=== PATIENT | male | born 1950 | race Caucasian/White ===

== ENCOUNTER → 2017-04-18 | Outpatient (CLI) | payer MEDICARE, OTHER | END | disposition home or self-care (01) | LOC: GMAM 10:21 | PROVIDERS: ATTEND Family Medicine | DX: Z12.5 Encounter for screening for malignant neoplasm of prostate (principal) ==

== ENCOUNTER → 2017-04-18 | Outpatient (CLI) | payer MEDICARE, OTHER | END | disposition home or self-care (01) | LOC: GMAM 14:45 | PROVIDERS: ATTEND Family Medicine | DX: R30.0 Dysuria (principal) ==

== ENCOUNTER → 2017-05-19 | Outpatient (CLI) | payer MEDICARE, OTHER ==
--- NOTE | 2017-05-19 17:11 | MRI ---
EXAM DESCRIPTION: Brain w/oContrast CLINICAL HISTORY: NEAR SYNCOPE COMPARISON: None TECHNIQUE: Multiplanar multisequence imaging of the brain including the intravenous administration of contrast. FINDINGS: A few small scattered foci of increased T2 signal intensity in the deep white matter bilaterally do not exert significant mass effect on surrounding structures and may be sequela of prior insult, most likely on the basis of small vessel disease. There is no evidence of acute mass, mass effect, midline shift or hemorrhage. No focal abnormal extra-axial fluid collection is seen. The ventricles, basal cisterns and extra-axial fluid spaces are normal in size and configuration. Brain parenchymal signal is otherwise normal. IMPRESSION: No acute abnormalities. Electronically signed by: Neptali Holbrook 05/19/2017 5:10 PM [employer]
== END | disposition home or self-care (01) ==
LOC: MRI 09:05
PROVIDERS: ATTEND Family Medicine
DX: R55 Syncope and collapse (principal)

== ENCOUNTER 2017-08-22 08:52 | Day surgery (SDC) | payer MEDICARE, OTHER ==
[~2017-08-22 08:52] MED LIST: LACTATED RINGERS 1,000 ML ONE
--- NOTE | 2017-08-22 09:21 | OP ---
DATE OF PROCEDURE: 08/22/17 PREOPERATIVE DIAGNOSIS: 1. History of colon cancer. POSTOPERATIVE DIAGNOSIS: 1. History of colon cancer. Colonoscopy completed to the cecum today with adequate visualization. 2. Polyp at the distal transverse colon, 4 mm, biopsied and removed with straight forceps biopsy. 3. Polyp at the proximal descending colon, 4 mm, multiple biopsies and removal by straight forceps biopsy. 4. Rectal polyp visualized on retroflexion, biopsied with straight forceps biopsy and believed to be removed. PROCEDURE: 1. Colonoscopy. SURGEON: Jose Rodriguez MD ANESTHESIA: Per Obdulio Cunningham CRNA. COMPLICATIONS: None apparent. SPECIMENS: Three polyps sent for Pathology. TECHNIQUE: The patient was brought to the GI lab and laid in the left lateral decubitus position. Digital rectal exam was performed. Prostate was felt to be normal. Rectal exam felt to be normal with no masses palpated. The colonoscope was inserted into the rectum and slowly through to the cecum. The cecum was well visualized. There were no polyps or masses in the cecum. The colonoscope was then gradually withdrawn through the ascending colon with no abnormalities noted, back into the transverse colon. In the distal aspect of the transverse colon, a small polyp was noted. This was biopsied with the straight forceps biopsy. It was a 4 mm polyp. Multiple biopsies were taken. Good hemostasis was achieved and adequate destruction was achieved. The scope was withdrawn further into the descending colon. In the proximal descending colon, another polyp was noted, again, 4 to 5 mm in size. This polyp was removed with the straight forceps biopsy. Multiple bites were taken and adequate destruction was achieved. Good hemostasis was noted. The scope was withdrawn back through the rest of the descending colon, into the sigmoid colon. This portion was somewhat difficult to examine due to a large amount of liquidy material that continued to refill the area despite suction and difficulty maintaining air in this portion of the colon as well, but I do feel like we got a fairly good look. We withdrew through the sigmoid colon and into the rectum. In the rectum, the scope was retroflexed. Upon retroflexion, another 4 mm polyp was noted in the rectum. This was biopsied with the straight forceps biopsy. A good bite was taken. Subsequent visualization of this polyp was very difficult. There was some bleeding in this region as well as maintaining the position of the scope was difficult, but we do feel like we got an adequate bite and destruction of that polyp. This will need to be reexamined in a year. The scope was straightened and gradually withdrawn. The patient tolerated the procedure well. There were no obvious complications. DISPOSITION: The patient will be discharged home when he is cleared from anesthesia standpoint. He needs another colonoscopy in one year. #[id number] [facility]
[2017-08-22] MEDS ORDERED: PROPOFOL 200 MG/20 ML VIAL IV ONE (10:00)
[2017-08-22] MEDS ORDERED: LIDOCAINE 1% 10 ML VIAL INJ ONE (10:00)
[2017-08-22 13:33] VITALS: BP 119/76; TEMP 98.4; O2SAT 95
== END 2017-08-22 09:10 | disposition home or self-care (01) ==
LOC: AMB 08:52
PROVIDERS: ATTEND Family Medicine
DX: Z12.11 Encounter for screening for malignant neoplasm of colon (principal); D12.7 Benign neoplasm of rectosigmoid junction; D12.4 Benign neoplasm of descending colon; D12.3 Benign neoplasm of transverse colon; E11.9 Type 2 diabetes mellitus without complications; E78.2 Mixed hyperlipidemia; K21.9 Gastro-esophageal reflux disease without esophagitis; Z87.891 Personal history of nicotine dependence; Z85.038 Personal history of other malignant neoplasm of large intestine; Z86.010 Personal history of colon polyps; Z88.8 Allergy status to other drugs, medicaments and biological substances; Z79.84 Long term (current) use of oral hypoglycemic drugs; Z79.82 Long term (current) use of aspirin
CPT/HCPCS: 00812; 36416; 45380; 82948; 88305; J3490; J7120

== ENCOUNTER → 2018-01-06 | Outpatient (CLI) | payer MEDICARE, OTHER ==
--- NOTE | 2018-01-06 16:41 | CT ---
EXAM DESCRIPTION: Abdomen/Pelvis w/wo Contrast: Computed Tomography. CLINICAL HISTORY: HEMATURIA. Borderline diabetes. Colon cancer with reconstruction 10 years ago. History of renal stones. Lower abdominal pain 2 days. COMPARISON: CT scan of abdomen and pelvis without and with IV contrast 09/17/2014 TECHNIQUE: Spiral-axial scans at 5.0 mm intervals through the abdomen and pelvis before and after standard dose nonionic IV contrast. No oral contrast. Coronal and sagittal 2.0 mm reconstructions, post contrast. No Delayed helical-axial scans . No adverse reactions. Total Exam DLP 1569.28 mGy - cm. This exam was performed according to our departmental CT dose-optimization program which includes automated exposure control, adjustment of the mA and/or kV according to patient size and/or use of iterative reconstruction technique; to reduce radiation dose to as low as reasonably achievable (ALARA). FINDINGS: Kidneys and Ureters: No radiodense stone in either kidney or ureters. No hydronephrosis or perinephric edema bilaterally. No ureteral edema bilaterally. Normal contrast enhancement. Subcentimeter cyst in the posterior mid left kidney. Stable since the prior study. No radiodense stones in the urinary bladder. Lung bases and pleura: Minimal thickening of the fissures minimal by basilar atelectasis. No pleural effusion. Stable since the prior study.. Liver, Stomach, Spleen, Adrenal Glands: Long axis of the right lobe of the liver is 18.2 cm. No focal lesions. Stomach and other solid organs are unremarkable. Pancreas, Gallbladder, Ducts: Gallbladder is visualized. Ducts are negative. Fatty infiltration of the pancreas. Mesentery: No stranding or fascial thickening. No free air or free fluid. Aorta: Minimal atherosclerotic calcification also involving some of the major branch vessels like the left renal artery. Small Bowel: Negative. Terminal Ileum/Cecum: Unremarkable. Normal caliber of the appendix. Normal density of the surrounding fat. Colon: Diffuse fecal matter involving most of the colon. Anastomosis in the upper left pelvis or lower left quadrant of the abdomen. No abnormal thickening, obstruction, pericolonic mass, or abnormality of the mesentery. Pelvic Organs: Prostate gland abutting the urinary bladder and the seminal vesicles. 5.4 x 3.5 cm transverse dimensions. Minimal calcification. No fluid in the anterior peritoneal reflection.. Spine and Bony Pelvis: Spondylosis L3-4 and in the included thoracic spine. Minimal arthrosis in the left SI joint and bilateral acetabula lateral spurs. Abdominal Wall/Back Soft Tissues: Negative. IMPRESSION: 1. Prior surgical anastomosis of the descending colon and sigmoid junction. No complications. No inflammatory changes in the fat and no mass or obstruction. 2. Bilateral kidneys ureters and urinary bladder unremarkable except for stable cyst in the left kidney. Enlarged prostate gland is impressing on the base of the urinary bladder. 3. Stable hepatomegaly. Electronically signed by: Neptali Guzmán MD 01/06/2018 4:40 PM CDT
== END ==
LOC: CT 11:56
PROVIDERS: ATTEND Family Medicine
DX: R31.9 Hematuria, unspecified (principal); N28.1 Cyst of kidney, acquired; N40.0 Benign prostatic hyperplasia without lower urinary tract symptoms; R16.0 Hepatomegaly, not elsewhere classified; Z98.0 Intestinal bypass and anastomosis status

== ENCOUNTER 2018-03-10 15:59 | Emergency (ER) | payer MEDICARE, OTHER ==
[2018-03-10 16:13] VITALS: TEMP 96.4; O2SAT 97
--- NOTE | 2018-03-10 16:20 | ED.PDOC ---
History of Present Illness - General Chief Complaint: Problem Stated Complaint: blood in Felix Time Seen by Provider: 03/10/18 16:17 Source: patient, RN notes reviewed Exam Limitations: no limitations Additional Information: 67 YEAR OLD WHITE MALE PRESENTS WITH BLOOD IN THE URINE HE HAD UROLOGICAL PROCEDURE DONE FOR BLADDER CANCER HE HAS A INDWELLING FELIX ( [address] WAY ) IT WAS DONE 2 DAYS AGO HIS URINE WAS GETTING CLEAR BUT IT HAS REDDISH AGAIN NO BLOOD CLOTS NO FEVER NO PAIN HE IS NOT ON ANY ANTICOAGULANTS - History of Present Illness Timing/Duration: yesterday Quality: moderate Radiation: none Activites at Onset: none Improving Factors: nothing Worsening Factors: nothing Allergies/Adverse Reactions: Allergies NO KNOWN ALLERGY Allergy (Unverified 09/11/14 10:40) Home Medications: Ambulatory Orders Ciprofloxacin [Cipro] 500 mg PO BID 03/10/18 Oxybutynin Chloride 5 mg PO TID 03/10/18 Victoza SC DAILY 03/10/18 Review of Systems - Review of Systems Constitutional: States: no symptoms reported EENTM: States: no symptoms reported Respiratory: States: no symptoms reported Cardiology: States: no symptoms reported Gastrointestinal/Abdominal: States: no symptoms reported Genitourinary: States: no symptoms reported Musculoskeletal: States: no symptoms reported Skin: States: no symptoms reported Neurological: States: no symptoms reported Endocrine: States: no symptoms reported Hematologic/Lymphatic: States: no symptoms reported Past Medical History (General) - Patient Medical History Hx Stroke: No Hx Congestive Heart Failure: No Hx Diabetes: Yes Hx Renal Disease: Yes Hx Cancer: Yes - Colon Hx MRSA: No - Vaccination History Hx Influenza Vaccination: No Hx Pneumococcal Vaccination: Yes - Social History Hx Tobacco Use: Yes Family Medical History - Family History Father Family History: Unknown Living Status: Unknown Physical Exam - Physical Exam General Appearance: Alert, Comfortable Eyes, Ears, Nose, Throat Exam: PERRL/EOMI, normal ENT inspection, TMs normal Neck: non-tender, full range of motion, supple, normal inspection Cardiovascular/Respiratory: regular rate, rhythm, no M/R/G, normal peripheral pulses, no JVD Gastrointestinal/Abdominal: normal bowel sounds, non tender, soft, no organomegaly Male Genital Exam: normal genitalia, no hernia, bleeding Back Exam: normal inspection Progress - Results/Orders Results/Orders: THE BLADDER WAS IRRIGATED AND THE URINE BECAME CLEAR AFTER 3 LITRES PT WAS DISCHARGED HOME TO BE FOLLOWED BY HIS UROLOGIST DR STEINBERG TO RETURN IF SYMPTOMS RECUR Departure - Departure Clinical Impression: Hematuria Time of Disposition: 18:25 Disposition: Discharge to Home or Self Care Departure Forms: ED Discharge - Pt. Copy, Patient Portal Self Enrollment Diet: resume usual diet Referrals: Jose Rodriguez MD [Primary Care Provider] - 1-2 Weeks Home Medications: Ambulatory Orders Ciprofloxacin [Cipro] 500 mg PO BID 03/10/18 Oxybutynin Chloride 5 mg PO TID 03/10/18 Victoza SC DAILY 03/10/18
[2018-03-10 18:21] VITALS: BP 133/85
== END 2018-03-10 18:33 | disposition home or self-care (01) ==
LOC: ER 15:59
DX: R31.0 Gross hematuria (principal); E11.9 Type 2 diabetes mellitus without complications; Z46.6 Encounter for fitting and adjustment of urinary device; Z85.51 Personal history of malignant neoplasm of bladder; Z85.038 Personal history of other malignant neoplasm of large intestine; Z87.891 Personal history of nicotine dependence

== ENCOUNTER → 2019-07-18 | Outpatient (CLI) | payer MEDICARE, OTHER | LOC: GMAM 11:45 | PROVIDERS: ATTEND Family Medicine | DX: Z12.5 Encounter for screening for malignant neoplasm of prostate (principal); R53.82 Chronic fatigue, unspecified; K92.1 Melena; E78.2 Mixed hyperlipidemia; E11.9 Type 2 diabetes mellitus without complications | CPT/HCPCS: 84439; 84443; 85610; 85730; G0103 ==

== ENCOUNTER 2019-11-16 05:29 | Day surgery (SDC) | payer MEDICARE, OTHER ==
[2019-11-16] MEDS ORDERED: LACTATED RINGERS 1,000 ML ONE (06:57)
[2019-11-16] MEDS ORDERED: LIDOCAINE 1% 10 ML VIAL INJ ONE (07:00)
[2019-11-16] MEDS ORDERED: PROPOFOL 200 MG/20 ML VIAL IV ONE (07:00)
--- NOTE | 2019-11-16 13:26 | OP ---
DATE OF PROCEDURE: 11/16/19 PREOPERATIVE DIAGNOSIS: 1. History of colon cancer. POSTOPERATIVE DIAGNOSIS: 1. History of colon cancer. PROCEDURE: 1. Colonoscopy. SURGEON: Leoncio James MD FINDINGS: Normal colon. COMPLICATIONS: None. PLAN: Discharge. INDICATION: As stated. PROCEDURE: General anesthesia was induced in the lateral position. Digital rectal exam was normal. The colonoscope was gently introduced and able to be passed completely to the cecum. Previous operative site was not definitely identified by bj, scarring or stricturing. Upon withdrawal, no significant polyps were seen. The mucosal surfaces appeared normal with mild internal hemorrhoids, but normal colon. No diverticulosis either. Continue with recommended screening guidelines. #[id number] cc: Jose Rodriguez MD MTDD
[2019-11-16 14:03] VITALS: BP 116/74; TEMP 97.5; O2SAT 100
== END 2019-11-16 14:00 | disposition home or self-care (01) ==
LOC: AMB 05:29
PROVIDERS: ATTEND Surgery
DX: Z08 Encounter for follow-up examination after completed treatment for malignant neoplasm (principal); E11.9 Type 2 diabetes mellitus without complications; Z85.038 Personal history of other malignant neoplasm of large intestine; Z88.8 Allergy status to other drugs, medicaments and biological substances; Z79.899 Other long term (current) drug therapy; Z79.84 Long term (current) use of oral hypoglycemic drugs
CPT/HCPCS: 00811; 36416; 45378; 82948; J3490; J7120

== ENCOUNTER 2020-05-21 14:39 | Emergency (ER) | payer MEDICARE, OTHER ==
[2020-05-21] MEDS ORDERED: ASPIRIN TABLET 325 MG TAB PO ONE (14:46)
[2020-05-21] MEDS ORDERED: HEPARIN SODIUM (PORCINE) 5,000 U/ML VIAL IV ONE (14:47)
[2020-05-21] MEDS ORDERED: NITROGLYCERIN 0.4 MG 25 EA TAB SL ONE (14:52)
[2020-05-21] MEDS ORDERED: HEPARIN PREMIX 500 ML ONE (14:56)
[2020-05-21] MEDS ORDERED: HEPARIN PREMIX 25,000 UNITS in PREMIX BAG 1 BAG IVS SCH (15:00)
[2020-05-21] MEDS ORDERED: TENECTEPLASE 50 MG VIAL IV ONE (15:01)
--- NOTE | 2020-05-21 15:07 | ED.PDOC ---
History of Present Illness - General Chief Complaint: Chest Pain/OK Time Seen by Provider: 05/21/20 14:42 Source: patient Exam Limitations: no limitations - History of Present Illness Initial Comments: The patient is a 69-year-old male presented emergency room secondary to acute onset chest pain prior to arrival. The patient was just around once a day. No nausea vomiting or diarrhea. He did have some shortness of breath with it. No syncope. No history of any cardiac issues. No palpitations. No fever. No sore throat. No rash. He is a type II diabetic but noninsulin-dependent according to him. Chest pain was initially an 8 or 9 however he took 3 of his last nitroglycerin and it is down to a 4 upon arrival here. Timing/Duration: 1-3 hours Severity: moderate Improving Factors: medication Worsening Factors: nothing Associated Symptoms: chest pain, malaise Allergies/Adverse Reactions: Allergies Exenatide [From Globitel] Adverse Reaction (Verified 11/08/19 14:10) Home Medications: Ambulatory Orders Atorvastatin Calcium [Lipitor] 10 mg PO DAILY 11/08/19 Dulaglutide [Trulicity] 0.75 mg SC WKLY 05/21/20 Review of Systems - Review of Systems Constitutional: States: no symptoms reported EENTM: States: no symptoms reported Respiratory: States: no symptoms reported Cardiology: States: chest pain Gastrointestinal/Abdominal: States: no symptoms reported Genitourinary: States: no symptoms reported Musculoskeletal: States: no symptoms reported Skin: States: no symptoms reported Neurological: States: no symptoms reported Endocrine: States: no symptoms reported All other Systems: No Change from Baseline Past Medical History (General) - Patient Medical History Hx Stroke: No Hx Congestive Heart Failure: No Hx Diabetes: Yes Hx Renal Disease: Yes Hx Cancer: Yes - Colon Hx MRSA: No - Vaccination History Hx Influenza Vaccination: No Hx Pneumococcal Vaccination: Yes - Social History Hx Tobacco Use: Yes Family Medical History - Family History Father Family History: Unknown Living Status: Unknown Physical Exam - Physical Exam General Appearance: Alert, Anxious Eye Exam: bilateral normal Ears, Nose, Throat: hearing grossly normal, normal pharynx Neck: full range of motion, supple Respiratory: lungs clear, normal breath sounds, no respiratory distress, no accessory muscle use Cardiovascular/Chest: normal peripheral pulses, regular rate, rhythm - Mild bradycardia, no edema Peripheral Pulses: radial,right: 2+, radial,left: 2+ Gastrointestinal/Abdominal: non tender, soft Rectal Exam: deferred Back Exam: no CVA tenderness, no vertebral tenderness Extremity: normal range of motion, non-tender, normal inspection, no pedal edema, normal capillary refill Neurologic: social worker II-XII nml as tested, alert, normal mood/affect, oriented x 3 Skin Exam: normal color Comments: Vital Signs - 24 hr 05/21/20 15:01 O2 Sat by Pulse 97 Oximetry Progress - Progress Progress: 05/21/20 15:07 The patient is a 69-year-old male presented emergency room secondary to hours of chest pain. The patient is having a little less chest pain than he was earlier due to taking 3 of his 's nitroglycerin. The patient has obvious ST segment elevations in anterior leads. The patient has been discussed with cardiology at [facility] and will be transferred there emergently. The patient is being given aspirin, heparin and nitroglycerin here. He is also going to be administered TNKase. 05/21/20 15:33 Based upon the chest x-ray, a rapid coronavirus test is being performed. The patient is essentially asymptomatic from a respiratory standpoint. Repeat EKG after TNKase does show some persistent ST segment elevation in anterior leads but possibly decreased amplitude. There is also possibly a [address] segment elevation in lead III that was not seen on the previous EKG. Vital signs remained stable. The patient has been started on nitroglycerin drip. The patient will be going by helicopter for further intervention. 05/21/20 15:41 Rapid coronavirus test is negative. 05/21/20 15:42 critical care time spent for above is 40 minutes. - Results/Orders Results/Orders: 05/21/20 14:45 Telemetry .CONTINUOUS 05/21/20 15:00 Heparin Premix [Heparin/D5w 25,000U/500ML] 25,000 units Premix Bag 1 bag IVS PRN EKG STAT 05/21/20 15:20 RAPID SARS-CoV-2 RNA Stat Laboratory Results - last 24 hr 05/21/20 05/21/20 05/21/20 14:50 14:50 14:50 WBC 7.8 RBC 4.63 L Hgb 14.5 Hct 40.9 L MCV 88.3 MCH 31.2 H MCHC 35.4 RDW 12.4 Plt Count 491 H MPV 6.7 L Absolute Neuts (auto) 5.90 Absolute Lymphs (auto) 1.10 Absolute Monos (auto) 0.70 Absolute Eos (auto) 0.10 Absolute Basos (auto) 0.10 Neutrophils % 74.9 Lymphocytes % 14.0 L Monocytes % 8.5 Eosinophils % 1.7 Basophils % 0.9 PT 10.9 INR 1.10 PTT (SP) 26.4 D-Dimer, Quantitative 1550.0 H* Sodium 140 Potassium 3.8 Chloride 103 Carbon Dioxide 26 Anion Gap 14.8 BUN 12 Creatinine 1.01 BUN/Creatinine Ratio 11.9 Random Glucose 185 H Serum Osmolality 284.0 Calcium 8.3 L Magnesium 2.0 Total Bilirubin 0.6 AST 53 H ALT 91 H Alkaline Phosphatase 69 Creatine Kinase 47 CK-MB (CK-2) 1.5 CK-MB (CK-2) % Not Reportable Troponin I 0.08 H* B-Natriuretic Peptide 101.0 H Serum Total Protein 7.2 Albumin 2.8 L Globulin 4.4 H Albumin/Globulin Ratio 0.6 L Chest x-ray showed no pneumothorax and no focal consolidation. There are possibly scattered areas that could be consistent with viral pneumonia however. EKG shows ST segment elevation in leads V2 through V4. Normal sinus rhythm otherwise. Mild T wave inversion in lead III. Departure - Departure Clinical Impression: STEMI (ST elevation myocardial infarction) Qualifiers: Involved coronary artery: unspecified coronary artery Qualified Code(s): I21.3 - ST elevation (STEMI) myocardial infarction of unspecified site Disposition: Transfer to Hospital Condition: Serious Departure Forms: ED Discharge - Pt. Copy, Patient Portal Self Enrollment Instructions: DI for Chest Pain Referrals: Jose Rodriguez MD [Primary Care Provider] - 1-2 Weeks Home Medications: Ambulatory Orders Atorvastatin Calcium [Lipitor] 10 mg PO DAILY 11/08/19 Dulaglutide [Trulicity] 0.75 mg SC WKLY 05/21/20 Transfer to Outside Facility - Transfer Information Decision to Transfer Date: 05/21/20 Decision to Transfer Time: 15:09 Reason for Transfer: excavation laborer Accepting Provider:: dr dao Accepting Facility: [facility]
--- NOTE | 2020-05-21 15:07 | RAD ---
EXAM DESCRIPTION: Chest,1 View CLINICAL HISTORY: stemi COMPARISON: January 17, 2007 IMPRESSION: Single AP portable upright view of the chest shows cardiac silhouette and pulmonary vasculature to be within normal limits. Mild tortuosity the thoracic aorta. Lungs are normally aerated. Interval development of mostly peripheral interstitial airspace densities in the mid to lower lung romeo suggesting pneumonia including viral pneumonia or pneumonitis. No obvious pleural effusion or pneumothorax is seen. Interval removal of right subclavian Mediport. Electronically signed by: Mahesh Gonzalez MD 05/21/2020 3:05 PM [facility]
[2020-05-21] MEDS ORDERED: NITROGLYCERIN/D5W IV 250 ML IVS ONE (15:28)
[2020-05-21] MEDS ORDERED: METOPROLOL TARTRATE INJ 5 MG/5 ML VIAL IV ONE ×2 (15:46)
[2020-05-21] MEDS ORDERED: NITROGLYCERIN/D5W IV 50,000 MCG in PREMIX BOTTLE 1 BOTTLE IVS SCH (16:00)
[2020-05-21 16:09] VITALS: TEMP 97.6; O2SAT 96
[2020-05-21 16:43] VITALS: BP 126/82
== END 2020-05-21 16:30 | disposition short-term general hospital (02) ==
LOC: ER 14:39
DX: I21.3 ST elevation (STEMI) myocardial infarction of unspecified site (principal); R00.1 Bradycardia, unspecified; E11.22 Type 2 diabetes mellitus with diabetic chronic kidney disease; N18.9 Chronic kidney disease, unspecified; Z85.038 Personal history of other malignant neoplasm of large intestine; Z79.899 Other long term (current) drug therapy; Z88.8 Allergy status to other drugs, medicaments and biological substances; Z20.828 Contact with and (suspected) exposure to other viral communicable diseases
CPT/HCPCS: 36415; 36416; 71045; 80053; 82550; 82553; 82948; 83735; 83880; 84484; 85025; 85379; 85610; 85730; 87635; 93005; J1644; J3101